=== PATIENT | male | born 1995 | race Caucasian/White ===

== ENCOUNTER 2022-02-20 13:09 | Emergency (ER) | payer MEDICAID ==
[~2022-02-20] VITALS: Ht 182.9 cm; Wt 77.1 kg
[2022-02-20 13:27] VITALS: BP 134/70
[2022-02-20] MEDS ORDERED: KETOROLAC 30 MG/ML VIAL IM ONE (14:40)
[2022-02-20] MEDS ORDERED: hydrOXYzine PAMOATE 25 MG CAP PO STA (14:40)
--- NOTE | 2022-02-20 14:50 | NUR ---
26 y/o male, c/o chest pain daily for 2 months, states pain happens randomly. pt states he went to [facility] and got a cardiac work-up done and was told he did not have a heart attack. pt states he went to urgent care after because the chest pain worsened and was told by an [employer] that he might have pericarditis. pt was given oral steroids with minimal relief. denies nausea, vomiting, diarrhea. skin is pink/warm/dry. a&o x4 with even and steady gait. lungs clear bl, heart rate even and regular. denies anyone sick in the household with the same symptoms. pt states pain is 6/10 at this time. ermd made aware of pt. pmh: denies nka med: denies
--- NOTE | 2022-02-20 15:00 | NUR ---
labs drawn and given to phleb at this time
[2022-02-20 15:33] LABS: BASOPHILS % (AUTO) 0.1 % (0.0-2.0); EOSINOPHILS % (AUTO) 0.7 % (0.0-4.0); HEMATOCRIT 41.7 % (36-52); HEMOGLOBIN 13.7 g/dL (12.0-18.0); LYMPHOCYTES # (AUTO) 1.4 K/uL (2.0-11.5); LYMPHOCYTES % (AUTO) 25.9 % (20.5-51.1); MEAN CORPUSCULAR HEMOGLOBIN 26 pg (27-31); MEAN CORPUSCULAR HGB CONC 33 g/dL (33-37); MONOCYTES # (AUTO) 0.4 K/uL (0.8-1.0); MONOCYTES % (AUTO) 8.1 % (1.7-9.3); NEUTROPHILS # (AUTO) 3.5 K/uL (1.8-7.7); NEUTROPHILS % (AUTO) 65.2 % (42.2-75.2); PLATELET COUNT (AUTO) 286 K/uL (140-450); RED BLOOD CELL COUNT(AUTO) 5.34 MIL/uL (4.20-6.10); RED CELL DISTRIBUTION WIDTH 12.5 % (11.6-13.7); WHITE BLOOD COUNT (AUTO) 5.3 K/uL (4.8-10.8)
[2022-02-20] MEDS ORDERED: HYDR25CA1 PO (15:38)
[2022-02-20] MEDS ORDERED: IBUP-1842 PO (15:38)
[2022-02-20] MEDS ORDERED: FAMO-90 PO (15:39)
[2022-02-20 16:10] LABS: ALBUMIN 4.3 g/dL (3.4-5.0); CARBON DIOXIDE 26.5 mmol/L (21-32); CHLORIDE 105 mmol/L (98-107); CREATININE 0.7 mg/dL (0.6-1.3); GFR ARICAN-AMERICAN 178 mL/min (>90); GLUCOSE 91 mg/dL (74-106); POTASSIUM 3.8 mmol/L (3.5-5.1); UREA NITROGEN, BLOOD 6 mg/dL (7-18)
[2022-02-20 16:45] LABS: ANION GAP 13.3 (8-16); SODIUM SERUM 141 mmol/L (136-145)
[2022-02-20 16:46] LABS: ASPARTATE AMINOTRANSFERASE 18 U/L (15-37); THYROID STIMULATING HORMONE 1.59 uIU/mL (0.34-3.74)
[2022-02-20 17:45] VITALS: BP 134/70
--- NOTE | 2022-02-20 17:45 | NUR ---
Patient discharged with v/s stable. Written and verbal after care instructions given and explained. Patient alert, oriented and verbalized understanding of instructions. Ambulatory with steady gait. All questions addressed prior to discharge. ID band removed. Patient advised to follow up with PMD. Rx of famotidine, hydroxyzine, ibuprofen (sent) given. Patient educated on indication of medication including possible reaction and side effects. Opportunity to ask questions provided and answered. work note given
== END 2022-02-20 17:45 | disposition home or self-care (01) ==
LOC: MED 13:09
DX: R07.9 Chest pain, unspecified (principal)
CPT/HCPCS: 36415; 71045; 80053; 84443; 84484; 85025; 93005; 96372; 99285; J1885; Q0177

== ENCOUNTER 2022-11-27 09:55 | Day surgery (SDC) | payer OTHER ==
[~2022-11-27] VITALS: Ht 182.9 cm; Wt 83.0 kg
[~2022-11-27 09:55] MED LIST: FAMO-90 PO; HYDR25CA1 PO; IBUP-1842 PO
[2022-11-27] MEDS ORDERED: fentaNYL citrate 0.05 MG/ML VIAL ONE (10:41)
[2022-11-27] MEDS ORDERED: MIDAZOLAM 5 MG/5 ML VIAL ONE (10:42)
[2022-11-27] MEDS ORDERED: MIDAZOLAM 2 MG/2 ML VIAL IVP ONE (11:30)
== END 2022-11-27 11:57 | disposition home or self-care (01) ==
LOC: MDS 09:55 → MMU 09:55 → MDS 11:57
PROVIDERS: ATTEND Internal Medicine Gastroenterology
DX: R10.13 Epigastric pain (principal); K21.9 Gastro-esophageal reflux disease without esophagitis; Z20.822 Contact with and (suspected) exposure to COVID-19; Z79.899 Other long term (current) drug therapy
CPT/HCPCS: 43235; 87426; J2250; J3010